=== PATIENT | male | born 1985 ===

== ENCOUNTER 2016-05-31 18:12 | Emergency (ER) | payer OTHER ==
[2016-05-31 18:35] VITALS: BP 134/93; PULSE 73; RESP 20; TEMP 98.6; O2SAT 95
--- NOTE | 2016-05-31 18:43 | UCPHY ---
H & P Time Seen by Provider: 05/31/16 18:33 Patient Type: New HPI/ROS: This patient has a rash in his left lateral neck that is mildly burning in nature 1 or 2/10 in discomfort level but similar to previous zoster the head x2 and college. He has increased work stress currently and also has a cold sore in his lower lip that he gets intermittently when he is stressed. He does not have any antiviral medications at home currently and came in for evaluation and for script. ROS: No fevers. No other constitutional symptoms HEENT: No cold symptoms or other complaints besides what is mentioned in a HPI. No ocular symptoms. Neuro: No headache. No confusion. 5 point ROS is otherwise negative Past Medical/Surgical History: Zoster Herpes labialis Smoking Status: Never smoked Physical Exam: Physical Exam Vital signs are normal. General: No acute distress HEENT: Nose is clear oropharynx: No intraoral lesions. 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 Extraocular motions are intact. No conjunctival injection. Lungs: No respiratory distress. Cardiac: Brisk capillary refill is intact throughout. Skin: No rash or pallor. There is a raised erythematous papular rash in a cluster-dermatomal left lateral neck. No petechia or purpura Neuro: Alert and oriented x3 with no sensorimotor deficits. Initial differential diagnosis: Herpes zoster, contact dermatitis Constitutional: Initial Vital Signs Temperature (C) 37 C 05/31/16 18:31 Heart Rate 73 05/31/16 18:31 Respiratory Rate 20 05/31/16 18:31 Blood Pressure 134/93 H 05/31/16 18:31 O2 Sat (%) 95 05/31/16 18:31 O2 Delivery Mode Room Air Allergies/Adverse Reactions: No Known Allergies Allergy (Unverified 05/31/16 18:30) Home Medications: Medication Instructions Recorded Valacyclovir HCl [Valtrex] 1,000 mg PO TID #21 tab 05/31/16 MDM/Departure - MDM ED Course/Re-evaluation: Clinical findings are consistent with zoster. He does not appear toxic. Not think he has [employer] infection or other complicating factors. - Depart Clinical Impression: Herpes labialis Zoster Qualifiers: Qualifier Code: (B02.9) Zoster without complications Instructions: Shingles (ED) Additional Instructions: Diagnosis: Shingles 2. Herpes labialis Plan: Valtrex as prescribed Ibuprofen and/or Tylenol for discomfort as needed. Try to get some rest. Return for any significant worsening despite the treatment plan Prescriptions: Valacyclovir HCl [Valtrex] 1,000 mg PO TID #21 tab Referrals: NONE *PRIMARY CARE P,. [Primary Care Provider] - As per Instructions - PQRS PQRS Measurement: NA
== END 2016-05-31 18:47 | disposition home or self-care (01) ==
LOC: CED 18:12
DX: B02.9 Zoster without complications (principal); B00.1 Herpesviral vesicular dermatitis
CPT/HCPCS: 99203-PO; G0463-PO